=== PATIENT | female | born 1990 | race Two or more races ===

== ENCOUNTER 2022-09-12 08:07 | Emergency (ER) | payer OTHER ==
[2022-09-12 08:22] VITALS: RESP 18; BMI 22.1
[2022-09-12] MEDS ORDERED: chlordiazePOXIDE HCL 25 MG CAPSULE PO ONE (09:03)
[2022-09-12] MEDS ORDERED: chlordiazePOXIDE HCL 25 MG CAPSULE ONE (09:52)
[2022-09-12 10:27] LABS: URINE APPEARANCE CLEAR; URINE BILIRUBIN NEGATIVE (NEGATIVE); URINE COLOR YELLOW; URINE GLUCOSE (UA) NEGATIVE (NEGATIVE); URINE KETONE NEGATIVE (NEGATIVE); URINE LEUK ESTERASE NEGATIVE (NEGATIVE); URINE NITRITE NEGATIVE (NEGATIVE); URINE PROTEIN NEGATIVE (NEGATIVE); URINE UROBILINOGEN 0.2 mg/dL (0.2-1.0)
[2022-09-12 10:36] LABS: POTASSIUM 5.6 mmol/L (3.5-5.1)
[2022-09-12 10:38] LABS: CALCIUM 8.5 mg/dL (8.5-10.1)
[2022-09-12 10:39] LABS: ALBUMIN 3.5 g/dl (3.4-5.0); BLOOD UREA NITROGEN 10.8 mg/dL (7-18)
[2022-09-12 10:42] LABS: CREATININE 0.7 mg/dL (0.55-1.3)
[2022-09-12 10:43] LABS: BILIRUBIN,TOTAL 0.4 mg/dL (0.2-1); TOT PROT 7.4 g/dl (6.4-8.2)
[2022-09-12 10:55] LABS: METHADONE, UR NEGATIVE (NEGATIVE); PHENCYCLIDINE,URINE NEGATIVE (NEGATIVE); URINE AMPHETAMINES NEGATIVE (NEGATIVE)
[2022-09-12 10:56] LABS: URINE BARBITURATES NEGATIVE (NEGATIVE)
[2022-09-12 10:59] LABS: BASO % 1.2 % (0-2.0); EOS % 1.3 % (0-4.5); HEMATOCRIT 42.2 % (32.4-45.2); HEMOGLOBIN 13.8 GM/dL (10.7-15.3); LYMPH % 19.1 % (8-40); MCHC 32.7 g/dl (32.0-36.0); MEAN PLT VOLUME 8.7 fl (7.5-11.1); MONO % 6.4 % (3.8-10.2); PLATELET COUNT 306 10^3/uL (134-434); RBC 4.05 M/mm3 (3.60-5.2)
[2022-09-12 11:06] LABS: COCAINE, UR NEGATIVE (NEGATIVE); OPIATES, URI NEGATIVE (NEGATIVE); URINE BENZODIAZEPINES POSITIVE (NEGATIVE)
[2022-09-12 13:26] VITALS: BP 115/75; PULSE 102; TEMP 98
== END 2022-09-12 13:00 | disposition home or self-care (01) ==
LOC: JER 08:07
DX: F10.10 Alcohol abuse, uncomplicated (principal)
CPT/HCPCS: 36415; 71046-TC-FY; 80053; 80307; 81003; 84703; 85025; 93005; 93010; 99285-25